=== PATIENT | female | born 1990 ===

== ENCOUNTER 2018-06-21 16:12 | Emergency (ER) | payer OTHER, BC ==
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
[2018-06-21 18:48] VITALS: BP 115/71; PULSE 90; RESP 16; TEMP 98; O2SAT 98
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
== END 2018-06-21 18:48 | disposition home or self-care (01) ==
LOC: H.ER 16:12
DX: S09.90XA Unspecified injury of head, initial encounter (principal); S80.11XA Contusion of right lower leg, initial encounter; S16.1XXA Strain of muscle, fascia and tendon at neck level, initial encounter; V09.9XXA Pedestrian injured in unspecified transport accident, initial encounter